=== PATIENT | male | born 1960 ===

== ENCOUNTER 2023-04-24 12:09 | Outpatient (AMB) | payer SELFPAY ==
--- NOTE | 2023-04-24 13:09 | AM.OFFWIN_ITS ---
Intake Vital Signs 04/24/23 13:11 Height 5 ft 7.72 in BP 104/60 Blood Pressure Location Lt brachial Position Sitting Pulse 62 Pulse Source Pulse Oximeter Temp 98.1 F Temp Source Temporal Artery Scan Pulse Oximetry (%) 98 Oxygen Delivery Method Room Air Intake Visit Reasons: [employer] RT hand swelling Intake Note: pt is here for c/o right hand swelling denies injury Patient Tobacco Use Status: Never used Tobacco Allergies penicillamine Allergy (Mild, Verified 04/24/23 14:04) Hives Medication List - Last Reconciled 04/24/23 by Blaise Coronel MD colchicine 0.6 mg PO BID levothyroxine 250 mcg PO DAILY Do you need a note to return to daycare/school/sports/work: Yes HPI [employer] RT hand swelling HPI Details 62-year-old male presents to the office for a sick visit. Patient is complaining of right hand pain for the past few days. He is visiting from [place]. Does not recall any fall or injury. He has had history of gout in the past. [facility] Social History Patient Tobacco Use Status: Never used Tobacco Physical Exam Vital Signs: Last Vital Signs Temp 98.1 F 04/24/23 13:11 Pulse 62 04/24/23 13:11 BP 104/60 04/24/23 13:11 Pulse Ox 98 04/24/23 13:11 Oxygen Delivery Method Room Air 04/24/23 13:11 Extrem Other: Right hand: Dorsum of the hand: Swelling over the 1st and 2nd MCP joints. Painful to flex. Assessment & Plan Assessment & Plan (1) Gouty arthritis: Code(s): M10.9 - Gout, unspecified Plan: Patient gives a history of mild renal insufficiency in the past. 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 He is very comfortable with colchicine. He does not want an x-ray at this point. Medications: New colchicine 0.6 mg PO BID 14 tabs 0RF Coding Level of Care Code Est Pt Level 3 (13427) Diagnoses Gouty arthritis M10.9
[2023-04-24 13:11] VITALS: BP 104/60; PULSE 62; TEMP 36.7; O2SAT 98
== END 2023-04-24 14:32 | disposition home or self-care (01) ==
PROVIDERS: Visit Provider Internal Medicine
DX: M10.9 Gout, unspecified (principal)
CPT/HCPCS: 99213